=== PATIENT | male | born 1950 | race Caucasian/White ===

== ENCOUNTER → 2019-06-19 12:29 | Outpatient (CLI) | payer BC ==
[2014-01-02 12:43] VITALS: BMI 38.8
[~2019-06-19 12:29] MED LIST: ASPIRIN EC81 MG PO; BYSTOLIC10 MG PO; CARAFATE1 G PO; CELEBREX 100 M100 MG PO; DILAUDID4 MG PO; FLOMAX0.4 MG PO; IBUPROFEN800 MG PO; LEXAPRO20 MG PO; LIPITOR10 MG PO; LOTREL 10/20 CA1 CAP PO; LOTREL 5/10 MG1 CAP PO; MELATONIN10 M1 PO; PLAVIX75 MG PO; PROTONIX40 MG PO; TOPROL XL100 MG PO; ULTRAM50 MG PO; VICTOZA0.6 MG/0.1 SQ; VISTARIL50 MG PO
[2019-07-13 06:05] VITALS: BMI 35.6
== END | disposition home or self-care (01) ==
LOC: D.MRI 12:29
PROVIDERS: ATTEND Orthopaedic Surgery
DX: M75.122 Complete rotator cuff tear or rupture of left shoulder, not specified as traumatic (principal)

== ENCOUNTER 2019-07-13 05:19 | Day surgery (SDC) | payer BC ==
[2019-07-11 13:14] LABS: CALC OSMOLALITY 283 mosm/kg (275-300); CALCIUM 9.4 mg/dL (8.5-10.1); CARBON DIOXIDE 29.2 mmol/L (21.0-32.0); CHLORIDE - SERUM 104 mmol/L (98-107); CREATININE - SERUM 0.9 mg/dL (0.6-1.3); GLUCOSE 133 mg/dL (74-106); HEMATOCRIT 43.6 % (42.0-54.0); HEMOGLOBIN 15.1 g/dL (13.5-17.5); MCH 30.2 pg (26.0-34.0); MCHC 34.6 g/dL (31.0-37.0); MCV 87.2 fL (80.0-100.0); MEAN PLATELET VOLUME 9.6 fL (7.4-10.4); POTASSIUM - SERUM 4.5 mmol/L (3.5-5.1); RDW 12.6 % (11.5-14.5); SODIUM 140 mmol/L (136-145); UREA NITROGEN 20 mg/dL (7-18); WBC 6.4 10x3/uL (4.8-10.8); eGFR NON AFRICAN AMERICAN 89 mL/min (90-120)
[2019-07-11 13:56] LABS: APTT 33.9 SECONDS (22.8-39.4); PROTIME 12.7 SECONDS (11.6-15.0)
[~2019-07-13] VITALS: Ht 180.3 cm; Wt 115.7 kg
[~2019-07-13 05:19] MED LIST changes: -DILAUDID4 MG PO; -VISTARIL50 MG PO
[2019-07-13 06:05] VITALS: BP 136/97; Ht 180.3 cm; Wt 115.7 kg
[2019-07-13] MEDS ORDERED: DILAUDID4 MG PO (09:14)
[2019-07-13] MEDS ORDERED: VISTARIL50 MG PO (09:15)
--- NOTE | 2019-07-13 10:11 | NUR ---
0957-REC'D FROM RR. AWAKE AND ALERT WITHOUT COMPLAINTS. VSS. DRESSING TO LEFT SHOULDER AND LEFT HAND CDI. FRIEND AT BEDSIDE, CL IN EASY REACH
--- NOTE | 2019-07-13 10:12 | NUR ---
1005-FULL LIQUID TRAY TO ROOM.
--- NOTE | 2019-07-13 10:53 | NUR ---
1030-TOLERATED FULL LIQUID TRAY. VSS. DRESSING TO LEFT WRIST AND LEFT SHOULDER CDI. CAP REFILL WNL,ABLE TO WIGGLE DIGITS, DENIES PAIN. PULSES STRONG AND REGULAR. VSS.
--- NOTE | 2019-07-13 12:32 | NUR ---
1100-DISCHARGE CRITERIA MET.REMOVED IV FROM LEFT HAND WITH CATH INTACT,DISPOSED INTO SHAPRS. COVERED SITE WITH BANDAID. DRESSING TO LEFT SHOULDER AND LEFT HAND CDI.CAP REFILL WNL,ABLE TO WIGGLE DIGITS. SKIN PINK,WDI. REVIEWED POST OPERATIVE INSTRUCTIONS WITH PT AND FRIEND AT BEDSIDE.VERBALIZED UNDERSTANDING WITHOUT QUESTIONS OR CONCERNS. ESCORTED OUT VIA W/C STABLE CONDITION. FRIEND TO DRIVE HOME
--- NOTE | 2019-07-13 15:17 | OP ---
PATIENT NAME: SEBASTIAN HASSAN MEDICAL RECORD: [id number] :50 LOCATION:[facility] ADMISSION DATE: SURGEON: TUNDE HARRIS DO DATE OF OPERATION: 07/13/2019 PROCEDURE PERFORMED: Left ring finger A1 nikki release, left shoulder arthroscopy with distal clavicle excision, subacromial decompression, biceps tenodesis and labral debridement. PREOPERATIVE DIAGNOSES: Left shoulder superior labrum anterior and posterior tear, subacromial impingement, acromioclavicular joint arthritis and left ring finger trigger finger. POSTOPERATIVE DIAGNOSES: Left shoulder superior labrum anterior and posterior tear, subacromial impingement, acromioclavicular joint arthritis and left ring finger trigger finger. INDICATIONS: Mr. Hassan is a 68-year-old male who has been dealing with these problems for quite some time. He has tried all manner of nonoperative treatment for the trigger and the shoulder including injections to no avail. He wants something done surgically. I informed him of the risks and benefits including infection, bleeding, damage to nerves and vessels, need for further surgery, continued pain and blood clots, and even and he signed the consent. SURGEON: Tunde Harris DO DESCRIPTION OF PROCEDURE: The patient was taken to the operative suite, laid in the right lateral decubitus position with the left shoulder up. A timeout was performed, everyone was in agreement with the correct side, site, patient, and procedure. He received 900 mg of clindamycin preoperatively. The left shoulder and left upper extremity was prepped and draped. Once a timeout was performed, an Esmarch was used to exsanguinate the forearm and was on the forearm for approximately 10 minutes. Incision was made in the palm of the left hand, over the flexor tendon and the ring finger in the distal crease. Careful dissection was made. Once the incision was made with a 15 blade scalpel with Tamiko to the A1 nikki, the A1 nikki was then released under loupe magnification from proximal to distal, getting a nice release of it, pulling the tendon out through the incision to ensure it did not catch or lock or pop and it did not. This was then were injected with approximately 5 mL of 0.25% Marcaine with epinephrine and then closed with 4-0 nylon in a horizontal mattress fashion. I then placed an Adaptic, 4 x 4's, Kerlix and a Coban lightly wrapped on the hand. He was then placed in the beavers for the shoulder and the shoulder was marked out and then the shoulder was inflated with 60 mL of normal saline. Posterior portal was then established with an 11-blade scalpel after the 18-gauge needle had been put in. Then, the trocar was entered into the shoulder joint. The camera was entered. The anterior portal was established with an 18-gauge spinal needle and 11-blade scalpel. The SLAP tear seen right away. The rotator cuff on the articular side looked to be in good shape as far as supraspinatus, infraspinatus and subscapularis. The joint did not have much arthritis and the inferior gutter was clear of debris. The burner was then brought into the anterior portal and the bicep tenotomy was performed as well as the labral debridement. I then went to the subacromial space. Subacromial decompression was done after establishing a lateral portal, 18-gauge spinal needle and 11-blade scalpel. Then, the decompression was done and then the burner was brought in through the anterior portal to do the distal clavicle excision, opening up the AC joint, OPERATIVE REPORT [id number] SEBASTIAN HASSAN approximately 7 mm. This AC joint was fused together essentially. The rotator cuff was then inspected thoroughly on the bursal side and no full-thickness or partial thickness tears were noted. The attention was then drawn to the biceps tenodesis site and an incision was made along the anterior humerus. Careful dissection was made down to the long head of bicep tendon. This was pulled out through the incision and any bleeding was coagulated with a Bovie at that time. The tendon was then whipstitched and a unicortical hole was placed in the humerus and cinched down to the button and then placed on the whipstitched tendon and into the unicortical hole of the humerus. They secured it very nicely and then this was tied and then a free needle was used to go back through the tendon and tied this down, securing it well into place. The excess tendon and suture were cut and the site was irrigated thoroughly with normal saline and that site was closed with 2-0 Vicryl in an inverted interrupted fashion, 4-0 Monocryl ran on the skin and a Dermabond placed on the portal sites and closed with 4-0 Monocryl in an inverted interrupted fashion and Dermabond placed on it. The shoulder was then dressed with a standard dressing and the patient was awakened, put in a sling and taken to recovery in stable condition. Blood loss was approximately 20 mL. COMPLICATIONS: None. TRANSINT:[id number] Voice Confirmation ID: [id number] DOCUMENT ID: [id number] TUNDE HARRIS DO at 1517 CC: [id number] DICTATION DATE: 07/13/19919 LINE UP EXAMINER: 07/13/19 1448 [facility] 07/13/19 [facility] [address] [place] [address]
== END 2019-07-13 11:00 | disposition home or self-care (01) ==
LOC: D.OPS 05:19 → D.PAN 07:45 → D.OPS 08:00
PROVIDERS: Anesthesiology; ATTEND Orthopaedic Surgery
DX: M65.342 Trigger finger, left ring finger (principal); S43.492A Other sprain of left shoulder joint, initial encounter; M75.42 Impingement syndrome of left shoulder

== ENCOUNTER 2019-10-22 07:00 | Day surgery (SDC) | payer BC ==
[~2019-10-22] VITALS: Ht 180.3 cm; Wt 122.3 kg
[~2019-10-22 07:00] MED LIST changes: +DILAUDID4 MG PO; +VISTARIL50 MG PO
[2019-10-22 07:59] VITALS: BP 121/81; Ht 180.3 cm; Wt 122.3 kg
[2019-10-22 08:07] LABS: CALC OSMOLALITY 280 mosm/kg (275-300); CALCIUM 8.9 mg/dL (8.5-10.1); CARBON DIOXIDE 25.7 mmol/L (21.0-32.0); CHLORIDE - SERUM 103 mmol/L (98-107); CREATININE - SERUM 0.9 mg/dL (0.6-1.3); GLUCOSE 126 mg/dL (74-106); POTASSIUM - SERUM 4.1 mmol/L (3.5-5.1); SODIUM 139 mmol/L (136-145); UREA NITROGEN 14 mg/dL (7-18); eGFR NON AFRICAN AMERICAN 89 mL/min (90-120)
[2019-10-22 08:10] LABS: HEMATOCRIT 40.7 % (42.0-54.0); HEMOGLOBIN 13.8 g/dL (13.5-17.5); MCH 29.4 pg (26.0-34.0); MCHC 33.9 g/dL (31.0-37.0); MCV 86.8 fL (80.0-100.0); MEAN PLATELET VOLUME 9.8 fL (7.4-10.4); RBC 4.69 10x6/uL (4.20-6.10); RDW 13.1 % (11.5-14.5); WBC 5.6 10x3/uL (4.8-10.8)
--- NOTE | 2019-10-22 10:52 | NUR ---
1047 IV DC'D. CATHETER TIP INTACT. PRESSURE HELD UNTIL BLEEDING CEASED. BANDAID APPLIED.
--- NOTE | 2019-10-22 17:14 | OP ---
PATIENT NAME: SEBASTIAN HASSAN MEDICAL RECORD: [id number] :50 LOCATION:[facility] ADMISSION DATE: SURGEON: BLANCA RAMIREZ DO DATE OF OPERATION: 10/22/2019 PROCEDURE: Colonoscopy with polypectomy. INDICATIONS FOR PROCEDURE: History of colon polyps, hematochezia, history of internal hemorrhoids. SCOPE: Olympus video pediatric colonoscope. MEDICATIONS: Propofol 350 mg IV per anesthesia. WITHDRAWAL TIME: 16 minutes. ESTIMATED BLOOD LOSS: Minimal. COMPLICATIONS: None. FINDINGS: Informed consent was given. The patient was made comfortable with the above medication. After reaching an adequate level of sedation by slow IV push, the patient was placed on his left side. A digital rectal examination was performed and was normal. The endoscope was then advanced under direct visualization through the rectum to the cecum, confirmed by the presence of the appendiceal orifice and ileocecal valve. The endoscope was slowly withdrawn and mucosa was carefully examined. The prep quality was poor. There was limited visualization of multiple areas of the colon due to some solid stool still being present within the colon that was unable to be removed. There were 4 polyps visualized on today's examination. Two were located in the cecum. They were both benign-appearing and sessile. They ranged in size from 2-4 mm in diameter. They were both removed using hot forceps. One of the site was reinforced using endoclips times 2 successfully. In the sigmoid colon, there were two benign-appearing sessile polyps, which were likely hyperplastic. They ranged in size from 2-3 mm in diameter. They were removed using hot forceps. Retroflexion was performed in the rectum with visualization of grade I internal hemorrhoids. Also, in the rectum, there were AVMs/angio ectasias consistent with radiation proctitis which is likely the cause of the patient's intermittent hematochezia while on Plavix. No diverticula were specifically seen today. The endoscope was removed from the patient. The patient tolerated the procedure well and there were no complications. IMPRESSION: 1. Four polyps as described above, removed using hot forceps. 2. Grade I internal hemorrhoids without bleeding. 3. Radiation proctitis. 4. Inadequate prep for completion of today's colonoscopy. PLAN AND RECOMMENDATIONS: 1. Discharge home when recovery parameters are met. 2. Follow up biopsy specimen results. 3. High fiber diet. 4. Continue current medications. 5. Resume Plavix, but monitor for further bleeding. 6. We will reschedule the patient for another colonoscopy at his earliest OPERATIVE REPORT [id number] SEBASTIAN HASSAN and plan to perform argon plasma coagulation for the radiation proctitis. We will likely utilize a MiraLax prep as the patient did not tolerate soup prep well and it did not work adequately for the patient. TRANSINT:[id number] Voice Confirmation ID: [id number] DOCUMENT ID: [id number] BLANCA RAMIREZ DO at 1714 CC: [id number] DICTATION DATE: 10/22/19 1017 CLINICAL ASSISTANT PROFESSOR: 10/22/19 1517 [facility] 10/22/19 [facility] [address] [place] [address]
== END 2019-10-22 11:02 | disposition home or self-care (01) ==
LOC: D.OPS 07:00
PROVIDERS: Anesthesiology; ATTEND Internal Medicine Gastroenterology
DX: Z86.010 Personal history of colon polyps (principal); K92.1 Melena; K64.8 Other hemorrhoids

== ENCOUNTER 2019-10-27 01:28 | Emergency (ER) | payer BC ==
[~2019-10-27] VITALS: Ht 180.3 cm; Wt 117.9 kg
[2019-10-27 01:32] VITALS: Ht 180.3 cm; Wt 117.9 kg
[2019-10-27 01:44] LABS: BASOPHILS 0.2 % (0-2); EOSINOPHILS 0.8 % (0-7); HEMOGLOBIN 8.6 g/dL (13.5-17.5); IMMATURE GRANULOCYTES 0.2 % (0-5); LYMPHOCYTES 9.9 % (15-50); MCH 28.6 pg (26.0-34.0); MCHC 31.9 g/dL (31.0-37.0); MCV 89.7 fL (80.0-100.0); MONOCYTES 4.1 % (2-11); NEUTROPHILS 84.8 % (40-80); PLATELET COUNT 167 10x3/uL (130-400); RBC 3.01 10x6/uL (4.20-6.10); RDW 13.4 % (11.5-14.5); WBC 8.3 10x3/uL (4.8-10.8)
[2019-10-27 02:07] LABS: ANION GAP 14.8 mmol/L (8-16); APTT 30.1 SECONDS (22.8-39.4); CALCIUM 7.7 mg/dL (8.5-10.1); CARBON DIOXIDE 21.2 mmol/L (21.0-32.0); CREATININE - SERUM 1.3 mg/dL (0.6-1.3); INR 1.29 (0.85-1.17); PROTIME 15.6 SECONDS (11.6-15.0)
[2019-10-27 02:13] LABS: ALBUMIN 2.8 g/dL (3.4-5.0); BILIRUBIN - TOTAL 0.24 mg/dL (0.2-1.3); PROTEIN - SERUM 5.2 g/dL (6.4-8.2)
[2019-10-27] MEDS ORDERED: AMBIEN10 MG PO (02:25)
[2019-10-27] MEDS ORDERED: HYDROCODON-ACE1 EA10 PO (02:25)
[2019-10-27 04:07] VITALS: BP 99/50
== END 2019-10-27 04:09 | disposition other institution (70) ==
LOC: D.ER 01:28
PROVIDERS: Family Medicine
DX: K92.2 Gastrointestinal hemorrhage, unspecified (principal); D62 Acute posthemorrhagic anemia; I25.10 Atherosclerotic heart disease of native coronary artery without angina pectoris; I10 Essential (primary) hypertension; E78.5 Hyperlipidemia, unspecified; E11.9 Type 2 diabetes mellitus without complications

== ENCOUNTER 2019-10-31 12:07 | Emergency (ER) | payer BC ==
[~2019-10-31] VITALS: Ht 180.3 cm; Wt 118.2 kg
[~2019-10-31 12:07] MED LIST changes: +AMBIEN10 MG PO; +HYDROCODON-ACE1 EA10 PO
[2019-10-31 12:11] VITALS: Ht 180.3 cm; Wt 118.2 kg
[2019-10-31] MEDS ORDERED: ULTRAM50 MG ×2 (12:40→13:09)
[2019-10-31] MEDS ORDERED: OXYBUTYNIN CHLOR5 M1 ×3 (12:40→13:12)
[2019-10-31 12:52] LABS: BASOPHILS 0.3 % (0-2); EOSINOPHILS 3.8 % (0-7); HEMATOCRIT 25.2 % (42.0-54.0); HEMOGLOBIN 8.2 g/dL (13.5-17.5); IMMATURE GRANULOCYTES 0.3 % (0-5); LYMPHOCYTES 17.5 % (15-50); MCH 29.1 pg (26.0-34.0); MCHC 32.5 g/dL (31.0-37.0); MCV 89.4 fL (80.0-100.0); MEAN PLATELET VOLUME 9.4 fL (7.4-10.4); NEUTROPHILS 68.1 % (40-80); RBC 2.82 10x6/uL (4.20-6.10)
[2019-10-31 12:53] LABS: PLATELET COUNT 209 10x3/uL (130-400)
[2019-10-31 12:59] LABS: CALC OSMOLALITY 280 mosm/kg (275-300); CALCIUM 8.4 mg/dL (8.5-10.1); CARBON DIOXIDE 25.8 mmol/L (21.0-32.0); CHLORIDE - SERUM 104 mmol/L (98-107); CREATININE - SERUM 0.9 mg/dL (0.6-1.3); SODIUM 139 mmol/L (136-145); UREA NITROGEN 21 mg/dL (7-18); eGFR NON AFRICAN AMERICAN 89 mL/min (90-120)
[2019-10-31 13:01] LABS: GLUCOSE 101 mg/dL (74-106)
[2019-10-31 13:03] LABS: INR 1.02 (0.85-1.17); PROTIME 13.4 SECONDS (11.6-15.0)
[2019-10-31 13:06] LABS: ALBUMIN 3.2 g/dL (3.4-5.0); ALKALINE PHOSPHATASE 57 U/L (46-116); ALT (SGPT) 29 U/L (10-68); PROTEIN - SERUM 6.5 g/dL (6.4-8.2)
[2019-10-31] MEDS ORDERED: OXYBUTYNIN CHLOR5 M1 PO ×2 (13:13→13:14)
[2019-10-31 15:24] VITALS: BP 102/71
== END 2019-10-31 15:28 | disposition home or self-care (01) ==
LOC: D.ER 12:07
PROVIDERS: Family Medicine
DX: Z71.1 Person with feared health complaint in whom no diagnosis is made (principal); D64.9 Anemia, unspecified; K92.2 Gastrointestinal hemorrhage, unspecified; E11.9 Type 2 diabetes mellitus without complications; I10 Essential (primary) hypertension; Z95.5 Presence of coronary angioplasty implant and graft; I25.10 Atherosclerotic heart disease of native coronary artery without angina pectoris; E78.5 Hyperlipidemia, unspecified; K21.9 Gastro-esophageal reflux disease without esophagitis; Z87.442 Personal history of urinary calculi

== ENCOUNTER → 2019-11-19 12:26 | Outpatient (CLI) | payer BC ==
[2019-10-31 12:11] VITALS: BMI 36.3
[~2019-11-19 12:26] MED LIST changes: +OXYBUTYNIN CHLOR5 M1; +OXYBUTYNIN CHLOR5 M1 PO; +ULTRAM50 MG
[2019-11-19 13:09] LABS: BASOPHILS 0.4 % (0-2); EOSINOPHILS 2.4 % (0-7); HEMATOCRIT 32.7 % (42.0-54.0); HEMOGLOBIN 10.2 g/dL (13.5-17.5); IMMATURE GRANULOCYTES 0.3 % (0-5); LYMPHOCYTES 24.3 % (15-50); MCH 27.1 pg (26.0-34.0); MCHC 31.2 g/dL (31.0-37.0); MEAN PLATELET VOLUME 9.2 fL (7.4-10.4); MONOCYTES 8.5 % (2-11); NEUTROPHILS 64.1 % (40-80); PLATELET COUNT 278 10x3/uL (130-400); RBC 3.76 10x6/uL (4.20-6.10); RDW 14.9 % (11.5-14.5); WBC 7.6 10x3/uL (4.8-10.8)
== END | disposition home or self-care (01) ==
LOC: D.LABREF 12:26
PROVIDERS: ATTEND Internal Medicine Gastroenterology
DX: D64.9 Anemia, unspecified (principal); W90.8XXA Exposure to other nonionizing radiation, initial encounter